=== PATIENT | male | born 1970 ===

== ENCOUNTER 2016-12-08 02:40 | Emergency (ER) | payer SELFPAY ==
--- NOTE | 2016-12-08 02:59 | ED PDOC ---
Arrival/HPI - General Chief Complaint: Alcohol Ingestion Time Seen by Provider: 12/08/16 02:45 Historian: Patient - History of Present Illness Narrative History of Present Illness (Text): 12/08/16 02:58 A 46 year old male brought in by EMS to the emergency department for alcohol intoxication. Patient denies any suicidal ideation or any other complaints at this time. Symptom Onset: Sudden Symptom Course: Unchanged Activities at Onset: Rest Context: Home Past Medical History - Provider Review Nursing Documentation Reviewed: Yes - Psychiatric Hx Substance Use: No - Anesthesia Hx Anesthesia: No Family/Social History - Physician Review Nursing Documentation Reviewed: Yes Family/Social History: No Known Family HX Smoking Status: Never Smoked Hx Alcohol Use: Yes Frequency of alcohol use: Socially Hx Substance Use: No Allergies/Home Meds Allergies/Adverse Reactions: Allergies No Known Allergies Allergy (Verified 12/08/16 02:48) Home Medications: Home Meds Medication Instructions Recorded Confirmed No Known Home Med 12/08/16 12/08/16 Review of Systems - Review of Systems Systems not reviewed;Unavailable: Intoxicated Physical Exam - Physical Exam Physical Exam Limitations: Intoxication Vital Signs Reviewed: Yes Vital Signs Temp Pulse Resp BP Pulse Ox 12/08/16 05:49 61 17 136/78 100 12/08/16 02:59 98.3 F 78 18 159/82 H 98 Temperature: Afebrile Blood Pressure: Hypertensive Pulse: Regular Respiratory Rate: Normal Appearance: Positive for: Well-Appearing, Non-Toxic, Comfortable Pain Distress: None Mental Status: Positive for: Alert and Oriented X 3 Medical Decision Making ED Course and Treatment: 12/08/16 02:56 Impression: A 46 year old male with alcohol intoxication. Plan: -- Reassess and disposition Progress Notes: - Scribe Statement The provider has reviewed the documentation as recorded by the Gonzalo Ag Provider Scribe Attestation: All medical record entries made by the Scribreji were at my direction and personally dictated by me. I have reviewed the chart and agree that the record accurately reflects my personal performance of the history, physical exam, medical decision making, and the department course for this patient. I have also personally directed, reviewed, and agree with the discharge instructions and disposition. Disposition/Present on Arrival - Present on Arrival Any Indicators Present on Arrival: No History of DVT/PE: No History of Uncontrolled Diabetes: No Urinary Catheter: No History of Decub. Ulcer: No History Surgical Site Infection Following: None - Disposition Have Diagnosis and Disposition been Completed?: Yes Diagnosis: Alcohol abuse Disposition: HOME/ ROUTINE Disposition Time: 06:00 Condition: IMPROVED Discharge Instructions (ExitCare): Abuse of Alcohol (ED) Additional Instructions: Thank you for letting us take care of you today. Your provider was Dr. Edwards. You were treated for alcohol abuse. The emergency medical care you received today was directed at your acute symptoms. If you were prescribed any medication, please fill it and take as directed. It may take several days for your symptoms to resolve. Return to the Emergency Department if your symptoms worsen, do not improve, or if you have any other problems. Please contact your doctor or call one of the physicians/clinics you have been referred to that are listed on the Patient Visit Information form that is included in your discharge packet. Bring any paperwork you were given at discharge with you along with any medications you are taking to your follow up visit. Our treatment cannot replace ongoing medical care by a primary care provider (PCP) outside of the emergency department. Thank you for allowing the [facility] team to be part of your care today. Follow up with your doctor for outpatient care.
[2016-12-08 03:03] VITALS: TEMP 98.3
[2016-12-08 05:50] VITALS: BP 136/78; PULSE 61; RESP 17; O2SAT 100
== END 2016-12-08 05:50 | disposition home or self-care (01) ==
LOC: ED 02:40
DX: F10.10 Alcohol abuse, uncomplicated (principal)